=== PATIENT | female | born 1990 | race African-American/Black ===

== ENCOUNTER 2020-02-29 19:18 | Emergency (ER) | payer OTHER ==
[~2020-02-29] VITALS: Ht 170.2 cm; Wt 82.1 kg
[2020-02-29] MEDS ORDERED: CLEOCIN HCL150 MG PO (19:49)
[2020-02-29 20:35] VITALS: BP 131/72
== END 2020-02-29 20:35 | disposition home or self-care (01) ==
LOC: ER 19:18
DX: L03.115 Cellulitis of right lower limb (principal)

== ENCOUNTER 2020-08-02 22:39 | Emergency (ER) | payer OTHER ==
[~2020-08-02] VITALS: Ht 170.2 cm; Wt 82.6 kg
[~2020-08-02 22:39] MED LIST: CLEOCIN HCL150 MG PO
[2020-08-02 23:37] LABS: URINE BILIRUBIN NEGATIVE (Negative); URINE BLOOD NEGATIVE (Negative); URINE CLARITY CLEAR; URINE COLOR YELLOW; URINE GLUCOSE-RANDOM* NEGATIVE (Negative); URINE KETONES NEGATIVE (Negative); URINE LEUKOCYTES-REFLEX NEGATIVE (Negative); URINE NITRITE-REFLEX NEGATIVE (Negative); URINE PROTEIN (DIPSTICK) NEGATIVE (Negative); URINE SPECIFIC GRAVITY 1.015 (1.005-1.035); URINE UROBILINOGEN 0.2 E.U./dl (0.2-1.0)
[2020-08-03 00:01] VITALS: BP 129/75
== END 2020-08-03 00:11 | disposition home or self-care (01) ==
LOC: ER 22:39
PROVIDERS: Emergency Medicine
DX: S30.95XA Unspecified superficial injury of vagina and vulva, initial encounter (principal); X58.XXXA Exposure to other specified factors, initial encounter; Y93.89 Activity, other specified; Y92.89 Other specified places as the place of occurrence of the external cause; Y99.8 Other external cause status

== ENCOUNTER 2021-05-20 23:18 | Emergency (ER) | payer OTHER ==
[~2021-05-20] VITALS: Ht 170.2 cm; Wt 80.7 kg
[2021-05-20 23:48] VITALS: BP 118/69
[2021-05-20] MEDS ORDERED: [UNRECOGNIZED DRUG - OTHER] PO (23:53)
[2021-05-20] MEDS ORDERED: VITAMIN C100 MG PO (23:53)
[2021-05-21] MEDS ORDERED: ZOFRAN ODT4 MG PO (00:37)
== END 2021-05-21 00:56 | disposition home or self-care (01) ==
LOC: ER 23:18
DX: U07.1 COVID-19 (principal); Z79.899 Other long term (current) drug therapy